=== PATIENT | female | born 1950 | race Caucasian/White ===

== ENCOUNTER 2025-03-07 08:49 | Emergency (ER) | payer BC | END 2025-03-07 09:34 | disposition home or self-care (01) | LOC: BURERS 08:49 | DX: S11.91XD Laceration without foreign body of unspecified part of neck, subsequent encounter (principal); E11.9 Type 2 diabetes mellitus without complications; X58.XXXD Exposure to other specified factors, subsequent encounter; Z86.73 Personal history of transient ischemic attack (TIA), and cerebral infarction without residual deficits ==

== ENCOUNTER 2025-03-09 07:10 | Emergency (ER) | payer BC | END 2025-03-09 08:08 | disposition home or self-care (01) | LOC: BURERS 07:10 | DX: S01.311D Laceration without foreign body of right ear, subsequent encounter (principal); E11.9 Type 2 diabetes mellitus without complications; X58.XXXD Exposure to other specified factors, subsequent encounter; Z86.73 Personal history of transient ischemic attack (TIA), and cerebral infarction without residual deficits ==